=== PATIENT | male | born 1990 | race Caucasian/White ===

== ENCOUNTER 2017-12-08 11:47 | Emergency (ER) | payer OTHER ==
--- NOTE | 2017-12-08 11:49 | ED Physician Documentation ---
General Adult - HISTORIAN Historian: patient, parent - HPI Stated Complaint: possible dehydration, rash Chief Complaint: Skin Rash Onset: days ago (2) Timing: better Severity: mild Further Comments: yes (Mom is his care connector he is non verbal. She states two days ago he started with a rash and she notes today he has had only small amount of urine output. He would not drink . He does not appear in pain with urination. No fever. Rash is improved.) Last known Well Code/Unknown Code: Unknown - ROS CONST: denies: fever, recent illness EYES/ENT: nasal drainage. denies: sore throat GI/: denies: abdominal pain, problems urinating, vomiting, nausea MS/SKIN/LYMPH: rash (improved today ) - PAST HX Past History: other (MR) Other History: other Surgeries/Procedures: other Immunizations: UTD Allergies/Adverse Reactions: Allergies Allergy/AdvReac Type Severity Reaction Status Date / Time atropine Allergy Verified 12/08/17 12:36 Penicillins Allergy Verified 12/08/17 12:36 Home Medications: Ambulatory Orders Medication Instructions Recorded Divalproex Sodium [Depakote] 375 mg PO TID 08/03/13 Glycopyrrolate [Robinul] 20 mg PO TID 02/22/14 - SOCIAL HX Smoking History: non-smoker Alcohol Use: none Drug Use: none - FAMILY HX Family History: No - VITAL SIGNS Vital Signs: Vital Signs Temp Pulse Resp BP Pulse Ox 132/76 08/21/14 23:09 - REVIEWED ASSESSMENTS Nursing Assessment Reviewed: Yes Vitals Reviewed: Yes ED Results Lab/Radiology - Radiology Radiology Impressions: Examination: PA and lateral chest. History: Evaluate lung mcnamara. Comparison exam: None provided Findings: PA lateral chest demonstrate a normal cardiac and mediastinal silhouette. Mild haziness to the left hemithorax. No right hemithorax infiltrate. No blunting of the costophrenic margins. Scoliotic fixation hardware in place. Impression: Mild left hemithorax haziness - chronicity indeterminate without old exams. No effusion. Electronically signed on Dec 08, 2017 12:52:38 PM HEALTHCARE SCIENCE SPECIALIST by: Mic Varghese General Adult Physical Exam - PHYSICAL EXAM GENERAL APPEARANCE: no distress EENT: eye inspection normal, ENT inspection normal, pharynx normal, no signs of dehydration NECK: normal inspection RESPIRATORY: no resp distress, chest non-tender, breath sounds normal CVS: reg rate & rhythm, heart sounds normal, equal pulses ABDOMEN: soft, normal bowel sounds, non-tender SKIN: warm/dry, normal color EXTREMITIES: non-tender, normal range of motion NEURO: sensation nml, mood/affect nml (per mom ) Discharge Clincal Impression: Cough Referrals: Roseann Alicea, PRN [Primary Care Provider] - 2 Days Comments: Push fluids Pedilite OTC meds for symptoms return to ER OR PCP For concerning symptoms Condition: Stable Disposition: 01 HOME, SELF-CARE Decision to Admit: NO Date of Decison to Admit: 12/08/17 Decision Time: 13:03
[2017-12-08 12:41] LABS: BASOPHILS % 0.3 (0.0-1.5); EOSINOPHILS % 0.3 % (0.0-6.8); MEAN CORPUSCULAR HEMOGLOBIN 33.3 pg (28.0-34.0); MEAN CORPUSCULAR VOLUME 98.8 fl (80.0-100.0); MONOCYTES % 9.2 % (0.0-11.0); NEUTROPHILS # 4.9 # k/uL (1.4-7.7)
[2017-12-08 12:52] LABS: eGFR (African) > 60; eGFR (Non-African) > 60
[2017-12-08 13:17] VITALS: BP 101/49
--- NOTE | 2017-12-08 13:29 | Diagnostic Imaging Report ---
DANE QUIROZ [facility] [address] [facility] [address] [place], [place]. 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 History: Evaluate lung mcnamara. Comparison exam: None provided Findings: PA lateral chest demonstrate a normal cardiac and mediastinal silhouette. Mild haziness to the left hemithorax. No right hemithorax infiltrate. No blunting of the costophrenic margins. Scoliotic fixation hardware in place. Impression: Mild left hemithorax haziness - chronicity indeterminate without old exams. No effusion. Electronically signed on Dec 08, 2017 12:52:38 PM TABLET MAKING MACHINE OPERATOR by: Mic DIETRICH
== END 2017-12-08 13:15 | disposition home or self-care (01) ==
LOC: ED 11:47
DX: R05 Cough (principal)
CPT/HCPCS: 71020; 80053; 85025; 87070; 87880; 99283; S1016

== ENCOUNTER 2018-08-04 08:08 | Emergency (ER) | payer OTHER ==
[2018-08-04 08:28] VITALS: BP 144/54
--- NOTE | 2018-08-04 08:29 | ED Physician Documentation ---
General Adult - HISTORIAN Historian: parent - HPI Chief Complaint: Nausea,Vomiting,Diarrhea Additional Information: 27yo white male whose caregiver has been diagnosed with C diff. Patient has started to have some diarrhea. Has been having multiple small BM 6-8 times a day. Has had a low grade fever over the last 3 days. Has been nauseated but no vomiting noted. No other family members with illness/problems. No previous history of C. diif. Patient has been taking in oral intake well. Has been urinating normally. Onset: days ago (2-3 days) Timing: still present Severity: mild Further Comments: no - ROS CONST: fever. denies: chills GI/: nausea, diarrhea. denies: abdominal pain, problems urinating, vomiting, black stools - PAST HX Past History: other (seizure) Surgeries/Procedures: other (aldana guero places in the lumber spine) Immunizations: referred to PCP Allergies/Adverse Reactions: Allergies Allergy/AdvReac Type Severity Reaction Status Date / Time amoxicillin Allergy Verified 08/04/18 08:31 atropine Allergy Verified 12/08/17 12:36 cephalexin Allergy Verified 08/04/18 08:31 Penicillins Allergy Verified 12/08/17 12:36 Home Medications: Ambulatory Orders Medication Instructions Recorded Divalproex Sodium [Depakote] 375 mg PO TID 08/03/13 Glycopyrrolate [Robinul] 20 mg PO TID 02/22/14 - SOCIAL HX Smoking History: non-smoker Alcohol Use: none - FAMILY HX Family History: No - VITAL SIGNS Vital Signs: Vital Signs Temp Pulse Resp BP Pulse Ox 101/49 12/08/17 13:16 - REVIEWED ASSESSMENTS Nursing Assessment Reviewed: Yes Vitals Reviewed: Yes General Adult Physical Exam - PHYSICAL EXAM GENERAL APPEARANCE: no distress RESPIRATORY: no resp distress, chest non-tender, breath sounds normal. No: wheezes, rales, rhonchi CVS: reg rate & rhythm, heart sounds normal, equal pulses ABDOMEN: soft, no organomegaly, normal bowel sounds, no abdominal bruit, no distension, non-tender SKIN: warm/dry NEURO: No: oriented X3, CN's nml as tested, cognition normal (at baseline) Discharge Clincal Impression: Diarrhea Qualifiers: Diarrhea type: unspecified type Qualified Code(s): R19.7 - Diarrhea, unspecified Referrals: Roseann Alicea PRN [Primary Care Provider] - 2 Days Additional Instructions: Encourage fluids. Watch for signs of diarrhea. Have every one wash their hands frequently. If you have any further probems to see your primary care provider or return to the ED. Condition: Stable Disposition: 01 HOME, SELF-CARE Decision to Admit: NO Date of Decison to Admit: 08/04/18 Decision Time: 08:43
[2018-08-04 17:11] LABS: ADENOVIRUS F 40/41 Not Detected (Not Detected); ASTROVIRUS Not Detected (Not Detected); C. DIFFICILE (TOXIN A/B) Positive (Not Detected); CRYPTOSPORIDIUM Not Detected (Not Detected); CYCLOSPORA CAYETANENSIS Not Detected (Not Detected); ENTAMOEBA HISTOLYTICA Not Detected (Not Detected); GIARDIA LAMBLIA Not Detected (Not Detected); ROTAVIRUS A Not Detected (Not Detected); SAPOVIRUS Not Detected (Not Detected); VIBRIO CHOLERAE Not Detected (Not Detected)
== END 2018-08-04 09:00 | disposition home or self-care (01) ==
LOC: ED 08:08
DX: R19.7 Diarrhea, unspecified (principal)
CPT/HCPCS: 87507; 99282

== ENCOUNTER 2018-12-07 09:36 | Outpatient (CLI) | payer OTHER | END 2018-12-07 09:38 | LOC: LAB 09:36 | PROVIDERS: ATTEND Nurse Practitioner Family | DX: R19.4 Change in bowel habit (principal) | CPT/HCPCS: 82270; 87045; 87046; 87177; 87209; 87427; 87493 ==